=== PATIENT | female | born 1970 | race American Indian/Alaskan Native ===

== ENCOUNTER 2017-10-24 18:23 | Emergency (ER) | payer OTHER ==
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
[2017-10-24 19:00] VITALS: RESP 20; TEMP 98.8
[2017-10-24 20:04] VITALS: BP 163/117; PULSE 87; O2SAT 98
[2017-10-24] MEDS ORDERED: Lidocaine 5% Patch TD STA (20:14)
[2017-10-24] MEDS ORDERED: Lidocaine 5% Patch TD ONE (20:19)
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
--- NOTE | 2017-10-25 23:57 | CARD ---
APPROVED REPORT EKG Measurement Heart [id number] <Conclusion> Normal sinus rhythm Normal ECG
== END 2017-10-24 21:06 | disposition home or self-care (01) ==
LOC: C.ER 18:23
DX: S16.1XXA Strain of muscle, fascia and tendon at neck level, initial encounter (principal); V89.2XXA Person injured in unspecified motor-vehicle accident, traffic, initial encounter; I10 Essential (primary) hypertension; Z91.14 Patient's other noncompliance with medication regimen

== ENCOUNTER 2019-02-26 18:24 | Emergency (ER) | payer OTHER ==
[2019-02-26 18:27] VITALS: BMI 31.3
[2019-02-26 18:31] VITALS: RESP 18
[2019-02-26 19:34] VITALS: O2SAT 100
--- NOTE | 2019-02-26 19:42 | C.PDOC ---
History Of Present Illness 48 yr old female w/ hx of HTN, Hypercholesterolemia p/w nosebleed. Pt notes intermittent nosebleed since last night after picking her nose last night and being non-compliant with her anti-HTN medications for one week. She notes that her bleeding stopped after arriving to the ER and denies any current nose bleeding. She notes that that blood was dripping slowly out of her L nare. She denies any blood going down her throat. She denies any recent fall or trauma and denies any blood thinner usage. No other complaints. No fever, chills or night sweats. Time Seen by Provider: 02/26/19 19:01 Chief Complaint (Nursing): ENT Problem Past Medical History Vital Signs: Last Vital Signs Temp 98.8 F 02/26/19 19:33 Pulse 98 H 02/26/19 19:33 Resp 18 02/26/19 19:33 BP 144/99 H 02/26/19 19:33 Pulse Ox 100 02/26/19 19:33 Primary Care Provider: Brendan Hernandez - Medical History PMH: HTN, Hypercholesterolemia Family History: States: Unknown Family Hx - Social History Hx Alcohol Use: Yes Hx Substance Use: No - Immunization History Hx Tetanus Toxoid Vaccination: No Hx Influenza Vaccination: No Hx Pneumococcal Vaccination: No Review Of Systems Constitutional: Negative for: Fever, Chills, Weakness, Malaise Eyes: Negative for: Pain, Vision Change, Eyelid Inflammation ENT: Negative for: Ear Pain, Ear Discharge, Nose Pain, Nose Congestion, Mouth Pain, Mouth Swelling, Throat Pain Cardiovascular: Negative for: Chest Pain, Palpitations Respiratory: Negative for: Cough, Shortness of Breath, SOB with Excertion Gastrointestinal: Negative for: Nausea, Vomiting, Abdominal Pain, Constipation, Melena Genitourinary: Negative for: Dysuria, Frequency, Incontinence, Hematuria, Vaginal Discharge, Vaginal Bleeding, Rash Musculoskeletal: Negative for: Neck Pain, Shoulder Pain, Arm Pain, Back Pain, Hand Pain Skin: Negative for: Rash, Lesions, Jaundice Neurological: Negative for: Weakness, Headache Psych: Negative for: Anxiety, Depression Physical Exam - Physical Exam Appears: Well, Non-toxic, No Acute Distress Skin: Normal Color, Warm, Dry Head: Atraumatic, Normacephalic Eye(s): bilateral: Normal Inspection, PERRL, EOMI Ear(s): Bilateral: Normal Nose: Normal, No Flaring, No Discharge, No Epistaxis, No Deformity, No Tenderness, No Septal Hematoma Oral Mucosa: Moist, No Drooling Tongue: Normal Appearing Lips: Normal Appearing Throat: Normal, No Erythema, No Exudate, No Drooling, No Mass, Other (no posterior bleed noted / no blood in posterior oropharynx) Neck: Normal, Normal ROM, Supple, Other (no meningeal signs) Lymphatic: Normal Exam, No Adenopathy Cardiovascular: Rhythm Regular, No Murmur, No JVD Respiratory: Normal Breath Sounds Gastrointestinal/Abdominal: Normal Exam Back: Normal Inspection, No CVA Tenderness, No Vertebral Tenderness Extremity: Normal ROM, No Tenderness, No Pedal Edema Neurological/Psych: Oriented x3, Normal Speech, Normal Cognition Gait: Steady ED Course And Treatment O2 Sat by Pulse Oximetry: 100 Medical Decision Making Medical Decision Makin yr old female p/w L nare anterior epistaxis. No visible bleeding noted. No posterior oropharnyangeal blood noted. No fall or trauma. No headache, neck pain or meningeal signs. No sinus pressure or pain. Pt notes she would not like a nasal packing: I endorsed the risk of recurrent bleed. PT notes she does not have nosebleeds when she takes her BP medications and would like to take her BP medication and conservative management. BP medication taken. pressure improved, will observe in ED, if remains w/ out bleed, clear for d/c home 2001 Remains w/ out epistaxis, post oropharynx unremarkable clear for d/c home with return indications and f/u. Pt agreeable to plan. Disposition - Disposition Referrals: Selvin Salgado MD [Staff Provider] - Katie Hernandez MD [Staff Provider] - [facility] [Outside] [facility] [Outside] [facility] [Outside] Disposition: HOME/ ROUTINE Disposition Time: 19:54 Condition: STABLE Additional Instructions: ESTEFANIA KAY, thank you for letting us take care of you today. Your provider was Alfredo Noyola and you were treated for NOSE BLEED/HIGH BLOOD PRESSURE. The emergency medical care you received today was directed at your acute symptoms. If you were prescribed any medication, please fill it and take as directed. It may take several days for your symptoms to resolve. Return to the Emergency Department if your symptoms worsen, do not improve, or if you have any other problems. Please contact your doctor or call one of the physicians/clinics you have been referred to that are listed on the Patient Visit Information form that is included in your discharge packet. Bring any paperwork you were given at discharge with you along with any medications you are taking to your follow up visit. Our treatment cannot replace ongoing medical care by a primary care provider outside of the emergency department. Thank you for allowing the [facility] team to be part of your care today. If you had an X-Ray or CT scan: A Radiologist will review the ED reading if any change in treatment is needed we will contact you. If you had a blood, urine, or wound culture: It will take several days for the results, if any change in treatment is needed we will contact you. If you had an STI test: It will take 48 hours for the results. Please call after 1 week if you have not heard back. Instructions: High Blood Pressure (DC), Nosebleeds (DC) Forms: [employer] (Maltese) - Clinical Impression Clinical Impression: Epistaxis, Hypertension
[2019-02-26 20:15] VITALS: BP 139/92; PULSE 81; TEMP 98.1
== END 2019-02-26 20:15 | disposition home or self-care (01) ==
LOC: C.ER 18:24
DX: R04.0 Epistaxis (principal); I10 Essential (primary) hypertension